=== PATIENT | female | born 1970 | race Caucasian/White ===

== ENCOUNTER 2016-12-23 21:08 | Emergency (ER) | payer MEDICAID, SELFPAY ==
[2016-12-23] MEDS ORDERED: Metoclopramide 10 MG/2 ML SDV IM ONE (21:32)
[2016-12-23] MEDS ORDERED: Ketorolac 60 MG/2 ML SDV IM ONE (21:32)
[2016-12-23] MEDS ORDERED: diphenhydrAMINE 50 MG/ML SDV IM ONE (21:32)
[2016-12-23 21:55] VITALS: BP 144/80
--- NOTE | 2016-12-25 03:26 | ER ---
DATE SEEN: 12/23/2016 REASON FOR VISIT: Headache. HISTORY OF PRESENT ILLNESS: Venancio is a 46-year-old female with a headache that started this morning when she woke up, bitemporal, [id number]. Has not improved with Aleve or Zofran, but characteristic of her usual migraine headaches. REVIEW OF SYSTEMS: Photophobia, but no fever. Denies any abdominal pain. Complains of right leg pain. ALLERGIES: Morphine. PAST MEDICAL HISTORY: Dehydration, migraine headaches, persistent emesis, cyclic vomiting, chronic low back pain, hypertension, mood disorder. PHYSICAL EXAMINATION: GENERAL: She is not in any cardiopulmonary distress. VITAL SIGNS: Her blood pressure today is 155/91, temperature 98.5. ENT: Negative. EYES: Dilated, equally reactive to light, symmetric. Normal extraocular movements. NECK: Supple. NEUROLOGIC: Deep tendons are symmetric. No focal findings. LABORATORY DATA: None. IMPRESSION: Migraine headache exacerbation. PLAN: Toradol, Reglan, and Benadryl IM. I advised her to drink fluids, rest, sleep, and if symptoms are not improved to see Dr. Boswell tomorrow. TIME SEEN: 2130 hours. /[id number] ETHAN/MICHAEL
== END 2016-12-23 21:53 | disposition home or self-care (01) ==
LOC: FB.ED 21:08
DX: G43.909 Migraine, unspecified, not intractable, without status migrainosus (principal); Z88.5 Allergy status to narcotic agent; I10 Essential (primary) hypertension
CPT/HCPCS: 96372; 99283; J1200; J1885; J2765

== ENCOUNTER 2017-06-14 06:49 | Day surgery (SDC) | payer MEDICAID ==
[~2017-06-14 06:49] MED LIST: Lactated Ringers 1,000 ML IV SCH; Sodium Chloride 0.9% 10 ML Syringe FLUSH PRN
[2017-06-14] MEDS ORDERED: Midazolam 1 MG/ML 2 ML SDV IV ONE (08:00)
[2017-06-14] MEDS ORDERED: Propofol 200 MG/20 ML SDV IV ONE (08:00)
--- NOTE | 2017-06-14 08:37 | PCM.OPNOTE ---
- General Post-Op/Procedure Note Date of Surgery/Procedure: 06/14/17 Operative Procedure(s): c scope with random biopsy Findings: normal colon Pre Op Diagnosis: diarrhea Post-Op Diagnosis: tho scope Anesthesia Technique: MAC Primary Surgeon: Victor Manuel Huang Anesthesia Provider: Geremias Holliday Pathology: random colon bx Complications: None Condition: Good Free Text/Narrative:: see dictation
[2017-06-14 10:20] VITALS: BP 132/74
--- NOTE | 2017-06-14 17:32 | OR ---
DATE OF OPERATION: 06/14/2017 SURGEON: Victor Manuel Huang MD PROCEDURE PERFORMED: Colonoscopy with random cold forceps biopsy. PREOPERATIVE DIAGNOSIS: History of diarrhea as well as Clostridium difficile infection in the past. POSTOPERATIVE DIAGNOSIS: Normal colonoscopy. INDICATIONS FOR PROCEDURE: This is a 46-year-old white female who is referred with a history of diarrhea as well as C. diff infection in the past. She has been treated multiple times for this condition and has continued to have loose stools. She was offered and accepted colonoscopy. PROCEDURE IN DETAIL: After an excellent IV sedation was administered, digital rectal exam was performed. No marked abnormality was noted. Flexible colonoscope was inserted and advanced to the cecum without difficulty. There were some areas of liquid stool, but we were able to irrigate and get a good view of the colon. The following findings were noted. Ascending colon unremarkable. Random biopsies were taken. Transverse colon, unremarkable. Random biopsies were taken. Descending colon, unremarkable. Random biopsies were taken. Sigmoid and rectum unremarkable. Random biopsies were taken. Colon was deflated, scope was removed. The patient tolerated the procedure well and was taken to recovery room in good condition. /[id number] /MODL
== END 2017-06-14 10:40 | disposition home or self-care (01) ==
LOC: FB.SDS 06:49
PROVIDERS: ATTEND Surgery
DX: K52.9 Noninfective gastroenteritis and colitis, unspecified (principal); J44.9 Chronic obstructive pulmonary disease, unspecified; K21.9 Gastro-esophageal reflux disease without esophagitis; E55.9 Vitamin D deficiency, unspecified; F32.9 Major depressive disorder, single episode, unspecified; F41.1 Generalized anxiety disorder; Z88.8 Allergy status to other drugs, medicaments and biological substances; Z79.899 Other long term (current) drug therapy; Z90.49 Acquired absence of other specified parts of digestive tract; Z98.890 Other specified postprocedural states; F17.210 Nicotine dependence, cigarettes, uncomplicated
CPT/HCPCS: 45380; 81025; 88305; J2250; J2704; J7120

== ENCOUNTER 2017-11-26 16:53 | Emergency (ER) | payer MEDICAID ==
[2017-11-26] MEDS ORDERED: Ondansetron 4 MG/2 ML SDV IVPUSH ONE (17:19)
[2017-11-26] MEDS ORDERED: diphenhydrAMINE 50 MG/ML SDV IVPUSH ONE (17:21)
[2017-11-26] MEDS ORDERED: Ketorolac 30 MG/ML SDV IVPUSH ONE (17:21)
--- NOTE | 2017-11-26 17:27 | EDM.PDOC ---
ED HPI GENERAL MEDICAL PROBLEM - General Chief Complaint: Abdominal Pain Stated Complaint: STOMACH ACHE Time Seen by Provider: 11/26/17 17:30 Source of Information: Reports: Patient History Limitations: Reports: No Limitations - History of Present Illness INITIAL COMMENTS - FREE TEXT/NARRATIVE: c/o R sided abd pain x 36h pt awoke at 3a with R flank pain that has persisted, not better or worse with position or eating not take regular meds in past wk h/o C diff twice, had bowel transplant, has intrathecal stimulator PMH includes RA and fibromyalgia no f/c/d, has had colonoscopy x 2 in past works at [employer], worked 7h today and left early, was off work yesterday nl soft BM x 1 today with no change in pain ate a burrito for bfast and hotdish for lunch today slight N, no V has HPV type 16 Abdominal Pain Score (Numeric/FACES): 8 - Related Data Allergies Allergy/AdvReac Type Severity Reaction Status Date / Time morphine Allergy Nausea and Verified 11/26/17 17:10 Vomiting Home Meds: Home Meds Ondansetron [Zofran] 8 g PO TID 12/23/16 [History] Albuterol [IMW: Albuterol HFA] 2 puff IH Q4H PRN 06/13/17 [History] LORazepam [Ativan] 0.5 mg PO TID PRN 06/13/17 [History] PARoxetine HCl [Paxil] 20 mg PO DAILY 06/13/17 [History] Potassium Chloride 10 meq PO DAILY 06/13/17 [History] Tocilizumab [Actemra] 0.9 ml SQ ASDIRECTED 06/13/17 [History] Potassium Chloride 20 meq PO BID #6 tablet.er 11/26/17 [Rx] Past Medical History - Past Health History Medical/Surgical History: Denies Medical/Surgical History HEENT History: Reports: None, Impaired Vision Cardiovascular History: Reports: Hypertension Other Cardiovascular History: HTN when sick, is on 0 meds. Respiratory History: Reports: Asthma, COPD, Pneumonia, Recurrent Gastrointestinal History: Reports: Chronic Diarrhea, Colon Polyp, GERD [employer] History: Reports: Other OB/BYN History: polycystic ovary. IV PARA IV Musculoskeletal History: Reports: Fracture, Fibromyalgia, Osteoarthritis, RA Other Musculoskeletal History: fx 3 metatarsals L ft, history of RA Neurological History: Reports: Concussion, Migraines Other Neuro History: states has migranes Psychiatric History: Reports: Anxiety, Depression Endocrine/Metabolic History: Reports: None Hematologic History: Reports: None Immunologic History: Reports: None Oncologic (Cancer) History: Reports: None Dermatologic History: Reports: None - Infectious Disease History Infectious Disease History: Reports: Chicken Pox, Herpes, Influenza, Mumps - Past Surgical History Head Surgeries/Procedures: Reports: None HEENT Surgical History: Reports: Oral Surgery Other HEENT Surgeries/Procedures: WISDOM TEETH EXTRACTION GI Surgical History: Reports: Cholecystectomy, Colonoscopy, EGD Other GI Surgeries/Procedures: c-diff,fecal transplant Other Female Surgeries/Procedures: DIAGNOSTIC LAPAROSCOPY Other Musculoskeletal Surgeries/Procedures:: fibromyalgia/ states , has rheumatoid arthritis, degenerative disc dse. FX LEFT FOOT. STATES WORE A BOOT FOR 6 MOS. Social & Family History - Family History Family Medical History: Noncontributory GI: Reports: None Musculoskeletal: Reports: RA Psychiatric: Reports: Depression Oncologic: Reports: Leukemia - Tobacco Use Smoking Status *Q: Current Every Day Smoker Years of Tobacco use: 25 Packs/Tins Daily: 0.5 Used Tobacco, but Quit: No Month/Year Tobacco Last Used: JUNE [employer] Smoke Exposure: Yes - Caffeine Use Caffeine Use: Reports: None - Alcohol Use Days Per Week of Alcohol Use: 2 Number of Drinks Per Day: 2 Total Drinks Per Week: 4 - Recreational Drug Use Recreational Drug Use: No Drug Use in Last 12 Months: No Recreational Drug Type: Reports: Marijuana/Hashish Recreational Drug Use Frequency: Socially - Living Situation & Occupation Living situation: Reports: Single Occupation: Employed ED ROS GENERAL - Review of Systems Review Of Systems: See Below Constitutional: Reports: No Symptoms HEENT: Reports: No Symptoms Respiratory: Reports: No Symptoms Cardiovascular: Reports: No Symptoms Endocrine: Reports: No Symptoms GI/Abdominal: Reports: Abdominal Pain, Nausea : Reports: No Symptoms Musculoskeletal: Reports: No Symptoms Skin: Reports: No Symptoms Neurological: Reports: No Symptoms Psychiatric: Reports: No Symptoms Hematologic/Lymphatic: Reports: No Symptoms Immunologic: Reports: No Symptoms ED EXAM, GI/ABD - Physical Exam Exam: See Below Exam Limited By: No Limitations General Appearance: Alert, WD/WN, Mild Distress Nose: Normal Inspection, Normal Mucosa, No Blood Throat/Mouth: Normal Inspection, Normal Lips, Normal Teeth, Normal Gums, Normal Voice, No Airway Compromise Head: Atraumatic, Normocephalic Neck: Normal Inspection, Supple, Non-Tender, Full Range of Motion Respiratory/Chest: No Respiratory Distress, Lungs Clear, Normal Breath Sounds, No Accessory Muscle Use, Chest Non-Tender Cardiovascular: Normal Peripheral Pulses, Regular Rate, Rhythm, No Edema, No Gallop, No JVD, No Murmur, No Rub GI/Abdominal Exam: Normal Bowel Sounds, Soft, No Organomegaly, No Distention, No Abnormal Bruit, No Mass, Other (slight tender over R colon). No: Distended, Guarding, Rigid, Rebound Back Exam: Normal Inspection, Full Range of Motion, NT Extremities: Normal Inspection, Normal Range of Motion, Non-Tender, No Pedal Edema Neurological: Alert, Oriented, CN II-XII Intact, No Motor/Sensory Deficits Psychiatric: Normal Affect, Normal Mood Skin Exam: Warm, Dry, Intact, Normal Color, No Rash Course - Vital Signs Last Recorded V/S: Last Vital Signs Temp 36.9 C 11/26/17 18:45 Pulse 68 11/26/17 18:45 Resp 16 11/26/17 18:45 BP 130/76 11/26/17 18:45 Pulse Ox 98 11/26/17 18:45 - Orders/Labs/Meds Orders: Active Orders 24 hr Category Date Time Status UA W/MICROSCOPIC [URIN] Stat Lab 11/26/17 17:18 Ordered Sodium Chloride 0.9% [Normal Saline] 1,000 ml Med 11/26/17 17:30 Active IV ASDIRECTED Sodium Chloride 0.9% [Normal Saline] 1,000 ml Med 11/26/17 17:30 Active IV ASDIRECTED Medication Orders Sodium Chloride (Normal Saline) 1,000 mls @ 999 mls/hr IV ASDIRECTED HARMONY Last Admin: 11/26/17 18:00 Dose: 999 mls/hr Sodium Chloride (Normal Saline) 1,000 mls @ 999 mls/hr IV ASDIRECTED HARMONY Last Admin: 11/26/17 19:02 Dose: 999 mls/hr Labs: Laboratory Tests 11/26/17 11/26/17 11/26/17 Range/Units 17:45 17:45 17:45 WBC 7.4 (4.5-12.0) X10-3/uL RBC 4.37 (3.23-5.20) x10(6)uL Hgb 13.8 D (11.5-15.5) g/dL Hct 40.1 D (30.0-51.3) % MCV 91.8 (80-96) fL MCH 31.5 (27.7-33.6) pg MCHC 34.3 (32.2-35.4) g/dL RDW 12.8 (11.5-15.5) % Plt Count 174 (125-369) X10(3)uL MPV 9.6 (7.4-10.4) fL Neut % (Auto) 53.4 (46-82) % Lymph % (Auto) 33.7 (13-37) % Cassia % (Auto) 8.4 (4-12) % Eos % (Auto) 4 (1.0-5.0) % Baso % (Auto) 1 (0-2) % Neut # (Auto) 3.9 (1.6-8.3) # Lymph # (Auto) 2.5 (0.6-5.0) # Cassia # (Auto) 0.6 (0.0-1.3) # Eos # (Auto) 0.3 (0.0-0.8) # Baso # (Auto) 0.1 (0.0-0.2) # Sodium 142 (135-145) mmol/L Potassium 3.2 L (3.5-5.3) mmol/L Chloride 106 (100-110) mmol/L Carbon Dioxide 23 (21-32) mmol/L BUN 17 (7-18) mg/dL Creatinine 0.7 (0.55-1.02) mg/dL Est Cr Clr Drug Dosing 91.32 mL/min Estimated GFR (MDRD) > 60 (>60) BUN/Creatinine Ratio 24.3 H (9-20) Glucose 116 (80-116) mg/dL Calcium 8.5 L (8.6-10.2) mg/dL Magnesium (1.8-2.5) mg/dL Total Bilirubin 0.3 (0.1-1.3) mg/dL AST 19 (5-25) IU/L ALT 26 (12-36) U/L Alkaline Phosphatase 81 (56-112) IU/L C-Reactive Protein < 0.2 L (0.5-0.9) mg/dL Total Protein 6.6 (6.0-8.0) g/dL Albumin 3.5 (3.5-5.2) g/dL Globulin 3.1 g/dL Albumin/Globulin Ratio 1.1 Amylase 38 (25-115) U/L // Range/Units 17:45 WBC (4.5-12.0) X10-3/uL RBC (3.23-5.20) x10(6)uL Hgb (11.5-15.5) g/dL Hct (30.0-51.3) % MCV (80-96) fL MCH (27.7-33.6) pg MCHC (32.2-35.4) g/dL RDW (11.5-15.5) % Plt Count (125-369) X10(3)uL MPV (7.4-10.4) fL Neut % (Auto) (46-82) % Lymph % (Auto) (13-37) % Cassia % (Auto) (4-12) % Eos % (Auto) (1.0-5.0) % Baso % (Auto) (0-2) % Neut # (Auto) (1.6-8.3) # Lymph # (Auto) (0.6-5.0) # Cassia # (Auto) (0.0-1.3) # Eos # (Auto) (0.0-0.8) # Baso # (Auto) (0.0-0.2) # Sodium (135-145) mmol/L Potassium (3.5-5.3) mmol/L Chloride (100-110) mmol/L Carbon Dioxide (21-32) mmol/L BUN (7-18) mg/dL Creatinine (0.55-1.02) mg/dL Est Cr Clr Drug Dosing mL/min Estimated GFR (MDRD) (>60) BUN/Creatinine Ratio (9-20) Glucose (80-116) mg/dL Calcium (8.6-10.2) mg/dL Magnesium 1.9 (1.8-2.5) mg/dL Total Bilirubin (0.1-1.3) mg/dL AST (5-25) IU/L ALT (12-36) U/L Alkaline Phosphatase (56-112) IU/L C-Reactive Protein (0.5-0.9) mg/dL Total Protein (6.0-8.0) g/dL Albumin (3.5-5.2) g/dL Globulin g/dL Albumin/Globulin Ratio Amylase (25-115) U/L Meds: Medications Generic Name Dose Route Start Last Admin Trade Name Freq PRN Reason Stop Dose Admin Sodium Chloride 1,000 mls @ 999 mls/hr 11/26/17 17:30 11/26/17 18:00 Normal Saline IV 999 mls/hr ASDIRECTED HARMONY Administration Sodium Chloride 1,000 mls @ 999 mls/hr 11/26/17 17:30 11/26/17 19:02 Normal Saline IV 999 mls/hr ASDIRECTED HARMONY Administration Discontinued Medications Generic Name Dose Route Start Last Admin Trade Name Freq PRN Reason Stop Dose Admin Diphenhydramine HCl 50 mg 11/26/17 17:21 11/26/17 18:02 Benadryl IVPUSH 11/26/17 17:22 50 mg ONETIME ONE Administration Ketorolac Tromethamine 30 mg 11/26/17 17:21 11/26/17 18:03 Toradol IVPUSH 11/26/17 17:22 30 mg ONETIME ONE Administration Ondansetron HCl 4 mg 11/26/17 17:19 11/26/17 18:00 Zofran IVPUSH 11/26/17 17:20 4 mg ONETIME ONE Administration Potassium Chloride 40 meq 11/26/17 19:02 Klor-Con M20 PO 11/26/17 19:03 ONETIME ONE - Re-Assessments/Exams Free Text/Narrative Re-Assessment/Exam: 11/26/17 19:18 pt fell asleep after meds and fluids, labs neg except for evidence of dehydration, no infection Departure - Departure Time of Disposition: 19:19 Disposition: Home, Self-Care 01 Condition: Good Clinical Impression: Dehydration, Hypokalemia, Colon spasm - Discharge Information Prescriptions: Potassium Chloride 20 meq PO BID #6 tablet.er Instructions: Hypokalemia, Dehydration, Adult, Irritable Bowel Syndrome, Adult Referrals: Leonel Boswell MD [Primary Care Provider] - Forms: ED Department Discharge Additional Instructions: For pain and cramping, take ibuprofen 200 mg 3 tabs and acetaminophen 500 mg with meals and bedtime for next 2 days. Increase fluids. Rest. See your doctor in 2 days. - My Orders Last 24 Hours: My Active Orders 11/26/17 17:18 UA W/MICROSCOPIC [URIN] Stat 11/26/17 17:30 Sodium Chloride 0.9% [Normal Saline] 1,000 ml IV ASDIRECTED Sodium Chloride 0.9% [Normal Saline] 1,000 ml IV ASDIRECTED - Assessment/Plan Last 24 Hours: My Active Orders 11/26/17 17:18 UA W/MICROSCOPIC [URIN] Stat 11/26/17 17:30 Sodium Chloride 0.9% [Normal Saline] 1,000 ml IV ASDIRECTED Sodium Chloride 0.9% [Normal Saline] 1,000 ml IV ASDIRECTED
[2017-11-26] MEDS ORDERED: Sodium Chloride 0.9% 1,000 ML IV SCH ×2 (17:30)
[2017-11-26] MEDS ORDERED: Potassium Chloride 20 MEQ Tab.ER PO ONE (19:02)
[2017-11-27 03:01] VITALS: BP 121/66
== END 2017-11-26 20:25 | disposition home or self-care (01) ==
LOC: FB.ED 16:53
DX: K58.9 Irritable bowel syndrome, unspecified (principal); E87.6 Hypokalemia; E86.0 Dehydration; I10 Essential (primary) hypertension; J44.9 Chronic obstructive pulmonary disease, unspecified; Z87.01 Personal history of pneumonia (recurrent); F32.9 Major depressive disorder, single episode, unspecified; F41.9 Anxiety disorder, unspecified; F17.210 Nicotine dependence, cigarettes, uncomplicated; Z88.5 Allergy status to narcotic agent; Z79.899 Other long term (current) drug therapy
CPT/HCPCS: 36415; 80053; 82150; 83735; 85025; 86140; 96361; 96374; 96375; 99283; A9270; J1200; J1885; J2405; J7040; J7030

== ENCOUNTER 2019-01-31 07:25 | Day surgery (SDC) | payer MEDICAID ==
[2019-01-31] MEDS ORDERED: Midazolam 1 MG/ML 2 ML SDV IV ONE (07:26)
[2019-01-31] MEDS ORDERED: Lidocaine 2% 100 MG/5 ML Syringe IVPUSH ONE (07:26)
[2019-01-31] MEDS ORDERED: Propofol 200 MG/20 ML SDV IV ONE (07:26)
[2019-01-31] MEDS ORDERED: Lactated Ringers 1,000 ML IV SCH (07:30)
[2019-01-31] MEDS ORDERED: Sodium Chloride 0.9% 10 ML Syringe FLUSH PRN (07:30)
--- NOTE | 2019-01-31 09:30 | PCM.OPNOTE ---
- General Post-Op/Procedure Note Date of Surgery/Procedure: 01/31/19 Operative Procedure(s): egd with bx. c scope with bx Findings: gastritis esophagitis sigmoid polyps hyperplastic internal hemorrhoids Pre Op Diagnosis: ruq abd pain. hematochezia Post-Op Diagnosis: gastritis esophagitis. sigmoid polyps, internal hemorrhoids Anesthesia Technique: MAC Primary Surgeon: Victor Manuel Huang Anesthesia Provider: Roseline Victor (CRNAS Myhre) Pathology: stomach esophagus and colon Complications: None Condition: Good Free Text/Narrative:: see dictation
[2019-01-31 10:19] VITALS: BP 123/96
--- NOTE | 2019-01-31 13:49 | OR ---
DATE OF OPERATION: 01/31/2019 SURGEON: Victor Manuel Huang MD PROCEDURE PERFORMED: Colonoscopy and upper endoscopy. PREOPERATIVE DIAGNOSES: Right upper quadrant abdominal pain and hematochezia. POSTOPERATIVE DIAGNOSES: Gastritis, esophagitis, sigmoid polyps x2, and internal hemorrhoids. INDICATIONS FOR PROCEDURE: This is a 48-year-old white female who was referred with the above-mentioned complaints. She was offered and accepted both an upper and lower endoscopy. DESCRIPTION OF OPERATION: After an excellent IV sedation was administered, the bite block was inserted and the flexible endoscope was passed down the patient's esophagus into the stomach. The stomach was insufflated, scope passed through the pylorus to the second portion of the duodenum and slowly withdrawn. The following findings were noted. Stomach demonstrated some diffuse gastritis. Biopsies and photos were taken. GE junction measured at 40 cm. There was evidence of some mild esophagitis just above this. Random biopsies were taken. The remainder of the esophageal exam was unremarkable. Stomach was deflated and the scope was removed. Attention was then turned to the colon. Digital rectal exam was performed. No abnormalities were noted. Flexible colonoscope was inserted and advanced to the cecum. Prep was excellent. The following findings were noted. Ascending colon was unremarkable. Transverse colon was unremarkable. Descending colon was unremarkable. Sigmoid revealed what appeared to be two hyperplastic appearing polyps. These were biopsied and sent for permanent. Rectum unremarkable. Retroflexing the scope, there was some evidence of internal hemorrhoids, which appears to be the cause of her bleeding. The patient tolerated the procedure well. We will have her follow up in the clinic for an anoscopy with possible hemorrhoid banding. /[id number] /MODL
== END 2019-01-31 10:53 | disposition home or self-care (01) ==
LOC: FB.SDS 07:25
PROVIDERS: ATTEND Surgery
DX: K63.5 Polyp of colon (principal); K20.9 Esophagitis, unspecified; K29.50 Unspecified chronic gastritis without bleeding; K64.8 Other hemorrhoids; M06.832 Other specified rheumatoid arthritis, left wrist; G43.709 Chronic migraine without aura, not intractable, without status migrainosus; F41.1 Generalized anxiety disorder; F32.9 Major depressive disorder, single episode, unspecified; M54.16 Radiculopathy, lumbar region; G89.29 Other chronic pain; J44.9 Chronic obstructive pulmonary disease, unspecified; F17.210 Nicotine dependence, cigarettes, uncomplicated; Z87.19 Personal history of other diseases of the digestive system; Z86.79 Personal history of other diseases of the circulatory system; Z79.891 Long term (current) use of opiate analgesic; Z79.899 Other long term (current) drug therapy; Z88.5 Allergy status to narcotic agent
CPT/HCPCS: 43239; 45380; 81025; 88305; 88313; 88342; J2001; J2250; J2704; J7120

== ENCOUNTER 2019-05-01 13:15 | Emergency (ER) | payer MEDICAID ==
[2019-05-01 13:45] VITALS: BP 151/89; PULSE 93
[2019-05-01] MEDS ORDERED: Albuterol/Ipratropium 3.0-0.5 MG/3 ML Neb Soln NEB ONE (14:01)
--- NOTE | 2019-05-01 14:21 | EDM.PDOC ---
ED HPI GENERAL MEDICAL PROBLEM - General Chief Complaint: Respiratory Problem Stated Complaint: CHEST COLD, SINUS Time Seen by Provider: 05/01/19 14:00 Source of Information: Reports: Patient History Limitations: Reports: No Limitations - History of Present Illness INITIAL COMMENTS - FREE TEXT/NARRATIVE: patient is a pleasant 48-year-old female who presents today with feeling lightheaded, slight nausea and a lot of coughing. She reports that her chest hurts and that she her symptoms have been ongoing for the past week. Sometimes it feels very hard to breathe and she has a lot of phlegm in her throat. She notes a headache today, and this seemed to start last night, especially around her eyes which are slightly crusted this morning. Chills and sweats but uncertain about fever. She was seen over in clinic yesterday by Dr. Rosario and started on Augmentin for acute sinusitis. She reports she took her first dose this morning. She had gone up to [facility] in [place] today and started feeling lightheaded, some just had her friend bring her here. She has been using her rescue inhaler approximately 45 times a day and she is prescribed Symbicort but has not been using this. she has tried cough drops and NyQuil at home but these don't seem to be helping. No history of coronary artery disease or diabetes, occasional social alcohol and for THC. Smokes tobacco regularly. No family history of early heart disease - Related Data Allergies Allergy/AdvReac Type Severity Reaction Status Date / Time morphine Allergy Nausea and Verified 01/31/19 07:41 Vomiting Home Meds: Home Meds Albuterol [IMW: Albuterol HFA] 2 puff IH Q4H PRN 06/13/17 [History] LORazepam [Ativan] 0.5 mg PO BID PRN 06/13/17 [History] Tocilizumab [Actemra] 0.9 ml SQ ASDIRECTED 06/13/17 [History] Diclofenac Sodium [Voltaren] 75 mg PO BID 01/30/19 [History] Nitroglycerin [Nitro-Bid 2%] 1 applic TOP ASDIRECTED PRN 01/30/19 [History] Ondansetron HCl [Zofran] 4 mg PO TID PRN 01/30/19 [History] SUMAtriptan Succinate [Imitrex] 100 mg PO Q2H PRN 01/30/19 [History] predniSONE [Prednisone] 40 mg PO QAM 5 Days #10 tablet 05/01/19 [Rx] Past Medical History HEENT History: Reports: None, Impaired Vision Cardiovascular History: Reports: Hypertension Other Cardiovascular History: HTN when sick, is on 0 meds. 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 IV PARA IV Musculoskeletal History: Reports: Arthritis, Back Pain, Chronic, Fracture, Fibromyalgia, Osteoarthritis, RA Other Musculoskeletal History: fx 3 metatarsals L ft, history of RA Neurological History: Reports: Concussion, Migraines Other Neuro History: states has migranes Psychiatric History: Reports: Anxiety, Depression Endocrine/Metabolic History: Reports: None Other Endocrine/Metabolic History: hyponatremia Hematologic History: Reports: None Immunologic History: Reports: None Oncologic (Cancer) History: Reports: None Dermatologic History: Reports: None - Infectious Disease History Infectious Disease History: Reports: C-Difficile - Past Surgical History Head Surgeries/Procedures: Reports: None HEENT Surgical History: Reports: Oral Surgery Other HEENT Surgeries/Procedures: WISDOM TEETH EXTRACTION GI Surgical History: Reports: Cholecystectomy, Colonoscopy, EGD Other GI Surgeries/Procedures: c-diff,fecal transplant Other Female Surgeries/Procedures: DIAGNOSTIC LAPAROSCOPY Other Musculoskeletal Surgeries/Procedures:: fibromyalgia/ states , has rheumatoid arthritis, degenerative disc dse. FX LEFT FOOT. STATES WORE A BOOT FOR 6 MOS. Social & Family History - Family History Family Medical History: Noncontributory GI: Reports: None Musculoskeletal: Reports: RA Psychiatric: Reports: Depression Oncologic: Reports: Leukemia - Tobacco Use Smoking Status *Q: Current Every Day Smoker - Caffeine Use Caffeine Use: Reports: Coffee, Soda - Alcohol Use Alcohol Use History: Yes Date/Time of Last Drink Comment: social - Living Situation & Occupation Living situation: Reports: Single Occupation: Employed ED ROS GENERAL - Review of Systems Review Of Systems: ROS reveals no pertinent complaints other than HPI. ED EXAM, GENERAL - Physical Exam Exam: See Below Free Text/Narrative:: Gen.: Alert, tired appearing but no acute distress. Tympanic membranes are clear bilaterally with normal light reflex and throat is without erythema, some drainage is noted at the back. Not really any sinus tenderness. She has shotty cervical lymphadenopathy. The neck is supple. Heart is regular rate and rhythm. Lungs are clear with decreased air movement and very slight expiratory wheeze. Following nebulizer treatment she has increased air movement overall, still no wheezes or crackles. Peripheral pulses +2 in both the upper and lower extremities and there is no lower extremity edema. Abdomen soft nontender EKG INTERPRETATION Rhythm: NSR P-Wave: Present QRS: Normal ST-T: Normal QT: Normal Course - Vital Signs Text/Narrative:: initial impressionpossible asthma exacerbation, less likely pneumonia, significant comorbidity with smoking and immunosuppression. Doesn't seem to be cardiac in origin but we will check troponin and get EKG as well given her risk factors of smoking and high blood pressure. plan: Labs, EKG, chest x-ray, nebulizer treatment here Last Recorded V/S: Last Vital Signs Temp 36.9 C 05/01/19 13:25 Pulse 93 05/01/19 13:25 Resp 18 05/01/19 13:25 BP 151/89 H 05/01/19 13:25 Pulse Ox 100 05/01/19 13:25 - Orders/Labs/Meds Orders: Active Orders 24 hr Category Date Time Status EKG Documentation Completion [RC] ASDIRECTED Care 05/01/19 14:02 Active RT Aerosol Therapy [RC] ASDIRECTED Care 05/01/19 14:01 Active Chest 2V [CR] Stat Exams 05/01/19 14:01 Taken EKG 12 Lead [EK] Routine Ther 05/01/19 14:02 Ordered Labs: Laboratory Tests 05/01/19 05/01/19 Range/Units 14:15 14:15 WBC 9.7 (4.5-12.0) X10-3/uL RBC 4.48 (3.23-5.20) x10(6)uL Hgb 14.2 (11.5-15.5) g/dL Hct 42.3 (30.0-51.3) % MCV 94.6 (80-96) fL MCH 31.8 (27.7-33.6) pg MCHC 33.7 (32.2-35.4) g/dL RDW 12.8 (11.5-15.5) % Plt Count 204 (125-369) X10(3)uL MPV 9.3 (7.4-10.4) fL Add Manual Diff Yes Neutrophils % (Manual) 72 (46-82) % Lymphocytes % (Manual) 25 (13-37) % Monocytes % (Manual) 3 L (4-12) % Troponin I < 0.017 L (<0.017-0.056) ng/mL Meds: Medications Discontinued Medications Generic Name Dose Route Start Last Admin Trade Name Freq PRN Reason Stop Dose Admin Albuterol/Ipratropium 3 ml 05/01/19 14:01 05/01/19 14:45 Duoneb 3.0-0.5 Mg/3 Ml NEB 05/01/19 14:02 3 ml ONETIME ONE Administration - Re-Assessments/Exams Free Text/Narrative Re-Assessment/Exam: 05/01/19 15:00 labs reviewed and are completely within normal limits. Patient chest exam shows improved air movement following DuoNeb and she states that her breathing feels much easier. Discussed doing a prednisone burst to help with her respiratory symptoms, particularly given her cough at night. Continue Augmentin as prescribed for acute sinusitis. Note provided for work for [employer] and tomorrow. Discussed sweats or symptoms which would prompt return to care and all questions were answered, she is in agreement with this plan Departure - Departure Time of Disposition: 15:28 Disposition: Home, Self-Care 01 Condition: Good Clinical Impression: Asthma exacerbation, COPD (chronic obstructive pulmonary disease) Sinusitis Qualifiers: Sinusitis location: pansinusitis Chronicity: acute Recurrence: non-recurrent Qualified Code(s): J01.40 - Acute pansinusitis, unspecified - Discharge Information *PRESCRIPTION DRUG MONITORING PROGRAM REVIEWED*: Not Applicable *COPY OF PRESCRIPTION DRUG MONITORING REPORT IN PATIENT MELISSA: Not Applicable Prescriptions: predniSONE [Prednisone] 40 mg PO QAM 5 Days #10 tablet Instructions: Sinusitis, Adult, [id number], Asthma, Adult Referrals: Leonel Boswell MD [Primary Care Provider] - Forms: ED Department Discharge, ED Return to Work/School Form Additional Instructions: single most help for thing that you can do for your breathing, cough and ongoing sinus symptoms would be to quit smoking. Dr. Rosario may have some suggestions or medications or local program to help with thisit is very hard to do. Also recommend use of Symbicort twice daily as you have been previously prescribed. Can use regular rescue inhaler as well, especially why her sick but her need for it should decrease his urine prednisone. You can use 4-6 puffs at a dosethis is closer to the DuoNeb we gave her here. Continue the Augmentin as prescribed If worsening symptoms, particularly any fever, ongoing or worsening shortness of breath, or cough that doesn't resolve should be reevaluated by a physician. - My Orders Last 24 Hours: My Active Orders 05/01/19 14:01 RT Aerosol Therapy [RC] ASDIRECTED Chest 2V [CR] Stat 05/01/19 14:02 EKG Documentation Completion [RC] ASDIRECTED EKG 12 Lead [EK] Routine - Assessment/Plan Last 24 Hours: My Active Orders 05/01/19 14:01 RT Aerosol Therapy [RC] ASDIRECTED Chest 2V [CR] Stat 05/01/19 14:02 EKG Documentation Completion [RC] ASDIRECTED EKG 12 Lead [EK] Routine
--- NOTE | 2019-05-02 09:34 | CR ---
INDICATION: Shortness of breath. CHEST: PA and lateral views of the chest, 05/01/19, were compared with and 10/15/15, again revealing the heart, mediastinum, and bony thorax to be unremarkable, except to note spinal leads in place, unchanged from previous studies. An active infiltrate or effusion was not identified. There is mild prominence of the AP diameter and minimally flattened diaphragm leaves with slight digitalization of the right hemidiaphragm, which may be associated with COPD and should be correlated clinically. IMPRESSION: 1. No definite acute process. 2. Question a mild degree of obstructive airway disease - possible COPD. MTDD
== END 2019-05-01 15:58 | disposition home or self-care (01) ==
LOC: FB.ED 13:15
DX: J44.1 Chronic obstructive pulmonary disease with (acute) exacerbation (principal); J01.40 Acute pansinusitis, unspecified; I10 Essential (primary) hypertension; F41.9 Anxiety disorder, unspecified; F32.9 Major depressive disorder, single episode, unspecified; F17.200 Nicotine dependence, unspecified, uncomplicated; Z88.5 Allergy status to narcotic agent; Z79.899 Other long term (current) drug therapy
CPT/HCPCS: 36415; 71046; 84484; 85025; 93005; 93010; 99282; 99284-25; J7620-GY

== ENCOUNTER 2020-05-24 09:31 | Emergency (ER) | payer MEDICAID, OTHER ==
[2020-05-24 09:41] VITALS: BP 149/99; PULSE 95
[2020-05-24] MEDS ORDERED: Ketorolac 60 MG/2 ML SDV IM ONE (10:03)
[2020-05-24] MEDS ORDERED: Amoxicillin 500 MG Cap PO ONE (10:06)
[2020-05-24] MEDS ORDERED: Lidocaine 2% Viscous Solution 15 ML Cup PO ONE (10:07)
--- NOTE | 2020-05-24 10:15 | EDM.PDOC ---
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 [employer], scheduled to work at 3p today sent to [facility] 11m ago in [place], told to have 3 teeth pulled but did not have $1000 to do so, has pain in those teeth now has Medicaid has h/o C diff and is cautious re using antbxs, will limit amox to 5d if pain gone has been taking Aleve dental pain Pain Score (Numeric/FACES): 9 - Related Data Allergies Allergy/AdvReac Type Severity Reaction Status Date / Time morphine Allergy Nausea and Verified 05/24/20 09:40 Vomiting Home Meds: Home Meds Albuterol [IMW: Albuterol HFA] 2 puff IH Q4H PRN 06/13/17 [History] LORazepam [Ativan] 0.5 mg PO BID PRN 06/13/17 [History] Tocilizumab [Actemra] 0.9 ml SQ ASDIRECTED 06/13/17 [History] Diclofenac Sodium [Voltaren] 75 mg PO BID 01/30/19 [History] Nitroglycerin [Nitro-Bid 2%] 1 applic TOP ASDIRECTED PRN 01/30/19 [History] SUMAtriptan succinate [Imitrex] 100 mg PO Q2H PRN 01/30/19 [History] ondansetron HCL [Zofran] 4 mg PO TID PRN 01/30/19 [History] predniSONE [Prednisone] 40 mg PO QAM 5 Days #10 tablet 05/01/19 [Rx] Amoxicillin 500 mg PO TID #20 tablet 05/24/20 [Rx] Lidocaine 2% [Xylocaine 2% Viscous] 15 ml PO ASDIRECTED PRN #1 cup 05/24/20 [Rx] Past Medical History - Past Health History Medical/Surgical History: Denies Medical/Surgical History HEENT History: Reports: None, Impaired Vision Cardiovascular History: Reports: Hypertension Other Cardiovascular History: HTN when sick, is not on any medication. 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 IV PARA IV Musculoskeletal History: Reports: Arthritis, Back Pain, Chronic, Fracture, Fibromyalgia, Osteoarthritis, RA Other Musculoskeletal History: fx 3 metatarsals L ft, history of RA Neurological History: Reports: Concussion, Migraines Other Neuro History: states has migranes Psychiatric History: Reports: Anxiety, Depression Endocrine/Metabolic History: Reports: None Other Endocrine/Metabolic History: hyponatremia Hematologic History: Reports: None Immunologic History: Reports: None Oncologic (Cancer) History: Reports: None Dermatologic History: Reports: None - Infectious Disease History Infectious Disease History: Reports: C-Difficile - Past Surgical History Head Surgeries/Procedures: Reports: None HEENT Surgical History: Reports: Oral Surgery Other HEENT Surgeries/Procedures: WISDOM TEETH EXTRACTION GI Surgical History: Reports: Cholecystectomy, Colonoscopy, EGD Other GI Surgeries/Procedures: c-diff,fecal transplant Other Female Surgeries/Procedures: DIAGNOSTIC LAPAROSCOPY Other Musculoskeletal Surgeries/Procedures:: fibromyalgia/ states , has rheumatoid arthritis, degenerative disc dse. FX LEFT FOOT. STATES WORE A BOOT FOR 6 MOS. Social & Family History - Family History Family Medical History: Noncontributory GI: Reports: None Musculoskeletal: Reports: RA Psychiatric: Reports: Depression Oncologic: Reports: Leukemia - Tobacco Use Smoking Status *Q: Current Every Day Smoker Years of Tobacco use: 30 Packs/Tins Daily: 0.5 - Caffeine Use Caffeine Use: Reports: Coffee, Energy Drinks, Soda - Recreational Drug Use Recreational Drug Use: Yes Recreational Drug Type: Reports: Marijuana/Hashish - Living Situation & Occupation Living situation: Reports: Single Occupation: Employed ED ROS ENT - Review of Systems Review Of Systems: See Below Constitutional: Reports: No Symptoms HEENT: Reports: Dental Pain Respiratory: Reports: No Symptoms Endocrine: Reports: No Symptoms GI/Abdominal: Reports: No Symptoms : Reports: No Symptoms Musculoskeletal: Reports: No Symptoms Skin: Reports: No Symptoms Neurological: Reports: No Symptoms Psychiatric: Reports: No Symptoms Hematologic/Lymphatic: Reports: No Symptoms Immunologic: Reports: No Symptoms ED EXAM, ENT - Physical Exam Exam: See Below Exam Limited By: No Limitations General Appearance: Alert, WD/WN, Mild Distress, Other (appears uncomfortable) Ears: Hearing Grossly Normal Nose: Normal Inspection, Normal Mucousa, No Blood Mouth/Throat: Other (tooth #32 absent, #31 loose (for past yr per pt) with erosion at base, #30 has large caries medially, #29 with little pain, #30-31 are the most tender and mainly on medial aspect, gingiva no red or swollen or tender, mild swell of 4 x 4 x 0.5 cm of skin over R mandible, no cervical LNs) Head: Atraumatic, Normocephalic Neck: No: Lymphadenopathy (R), Lymphadenopathy (L) Respiratory/Chest: No Respiratory Distress Cardiovascular: Regular Rate, Rhythm Course - Vital Signs Last Recorded V/S: Last Vital Signs Temp 36.2 C 05/24/20 09:40 Pulse 95 05/24/20 09:40 Resp 16 05/24/20 09:40 BP 149/99 H 05/24/20 09:40 Pulse Ox 98 05/24/20 09:40 - Orders/Labs/Meds Meds: Medications Discontinued Medications Generic Name Dose Route Start Last Admin Trade Name Freq PRN Reason Stop Dose Admin Amoxicillin 500 mg 05/24/20 10:06 Amoxil PO 05/24/20 10:07 ONETIME ONE Ketorolac Tromethamine 60 mg 05/24/20 10:03 Toradol IM 05/24/20 10:04 ONETIME ONE Lidocaine HCl 15 ml 05/24/20 10:07 Xylocaine 2% Viscous PO 05/24/20 10:08 ONETIME ONE Departure - Departure Time of Disposition: 10:10 Disposition: Home, Self-Care 01 Condition: Good Clinical Impression: Dental abscess, Dental caries - Discharge Information *COPY OF PRESCRIPTION DRUG MONITORING REPORT IN PATIENT MELISSA: Not Applicable Prescriptions: Amoxicillin 500 mg PO TID #20 tablet Lidocaine 2% [Xylocaine 2% Viscous] 15 ml PO ASDIRECTED PRN #1 cup PRN Reason: Pain Instructions: Dental Abscess Referrals: Boston Pedroza MD [Primary Care Provider] - Forms: ED Department Discharge, ED Return to Work/School Form Additional Instructions: For pain, take Aleve 2 tabs in morning, 1 tab in middle of day, and 2 tabs in evening. For pain, take acetaminophen 500 mg 2 tabs 3 times a day (at the same time as the Aleve). For pain, put a thin layer of 2% viscous lidocaine on a cotton ball and bite down every hour as needed. For pain, use ice on the mandible for 10 minute every hour. For pain, drink cold liquids and eat cold, soft food such as yogurt and jello. For infection, take amoxicillin 500 mg 1 tab 3 times a day for 7 days. May stop after 5 days if you are doing well. No work today unless you are feeling better. See a dentist in the next week. Return to ED (or walk-in clinic) if you are feeling worse. Sepsis Event Note (ED) - Evaluation Sepsis Screening Result: No Definite Risk - Focused Exam Vital Signs: Vital Signs Temp Pulse Resp BP Pulse Ox 05/24/20 09:40 36.2 C 95 16 149/99 H 98
== END 2020-05-24 10:32 | disposition home or self-care (01) ==
LOC: FB.ED 09:31
DX: K04.7 Periapical abscess without sinus (principal); K02.9 Dental caries, unspecified; I10 Essential (primary) hypertension; J44.9 Chronic obstructive pulmonary disease, unspecified; F41.9 Anxiety disorder, unspecified; F32.9 Major depressive disorder, single episode, unspecified; F17.210 Nicotine dependence, cigarettes, uncomplicated; Z88.5 Allergy status to narcotic agent; Z79.899 Other long term (current) drug therapy
CPT/HCPCS: 96372; 99282; A9270; J1885; 99283

== ENCOUNTER 2021-02-27 21:01 | Emergency (ER) | payer MEDICAID ==
--- NOTE | 2021-02-27 21:52 | EDM.PDOC ---
ED HPI GENERAL MEDICAL PROBLEM - General Chief Complaint: Chest Pain Stated Complaint: panic attack Time Seen by Provider: 02/27/21 21:15 Source of Information: Reports: Patient History Limitations: Reports: No Limitations - History of Present Illness INITIAL COMMENTS - FREE TEXT/NARRATIVE: Patient presented to the ED because of chest pain which started at 1900. the pain is sharp,5/10, over the sternal area. She also c/o nausea but no vomiting. She has a history of migraine and had headache all day. She took imitrex without any relief. Midsternal chest Pain Score (Numeric/FACES): 5 - Related Data Allergies Allergy/AdvReac Type Severity Reaction Status Date / Time morphine Allergy Nausea and Verified 02/27/21 21:27 Vomiting Home Meds: Home Meds Albuterol [IMW: Albuterol HFA] 2 puff IH Q4H PRN 06/13/17 [History] LORazepam [Ativan] 0.5 mg PO BID PRN 06/13/17 [History] Tocilizumab [Actemra] 0.9 ml SQ ASDIRECTED 06/13/17 [History] Diclofenac Sodium [Voltaren] 75 mg PO BID PRN 01/30/19 [History] SUMAtriptan succinate [Imitrex] 100 mg PO Q2H PRN 01/30/19 [History] ondansetron HCL [Zofran] 4 mg PO TID PRN 01/30/19 [History] Cyclobenzaprine [Flexeril] 10 mg PO DAILY PRN 02/27/21 [History] FLUoxetine HCl [Prozac] 20 mg PO DAILY 02/27/21 [History] Past Medical History - Past Health History Medical/Surgical History: Denies Medical/Surgical History HEENT History: Reports: None, Impaired Vision Cardiovascular History: Reports: Hypertension Other Cardiovascular History: HTN when sick, is not on any medication. 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 IV PARA IV Musculoskeletal History: Reports: Arthritis, Back Pain, Chronic, Fracture, Fibromyalgia, Osteoarthritis, RA Other Musculoskeletal History: fx 3 metatarsals L ft, history of RA Neurological History: Reports: Concussion, Migraines Other Neuro History: states has migranes Psychiatric History: Reports: Addiction, Anxiety, Depression Other Psychiatric History: hx meth abuse, clean for past 3 yrs Endocrine/Metabolic History: Reports: None Other Endocrine/Metabolic History: hyponatremia Hematologic History: Reports: None Immunologic History: Reports: None Oncologic (Cancer) History: Reports: None Dermatologic History: Reports: None - Infectious Disease History Infectious Disease History: Reports: C-Difficile, Chicken Pox - Past Surgical History Head Surgeries/Procedures: Reports: None HEENT Surgical History: Reports: Oral Surgery Other HEENT Surgeries/Procedures: WISDOM TEETH EXTRACTION Cardiovascular Surgical History: Reports: None GI Surgical History: Reports: Cholecystectomy, Colonoscopy, EGD Other GI Surgeries/Procedures: c-diff,fecal transplant Other Female Surgeries/Procedures: DIAGNOSTIC LAPAROSCOPY Endocrine Surgical History: Reports: Thyroid Biopsy Other Musculoskeletal Surgeries/Procedures:: fibromyalgia/ states , has rheumatoid arthritis, degenerative disc dse. FX LEFT FOOT. STATES WORE A BOOT FOR 6 MOS. Social & Family History - Family History Family Medical History: No Pertinent Family History GI: Reports: None Musculoskeletal: Reports: RA Psychiatric: Reports: Depression Oncologic: Reports: Leukemia - Tobacco Use Tobacco Use Status *Q: Current Every Day Tobacco User Years of Tobacco use: 30 Packs/Tins Daily: 0.5 - Caffeine Use Caffeine Use: Reports: Soda - Alcohol Use Days Per Week of Alcohol Use: 2 Number of Drinks Per Day: 2 Total Drinks Per Week: 4 - Recreational Drug Use Recreational Drug Use: Yes Recreational Drug Type: Reports: Marijuana/Hashish Other Recreational Drug Type: Has hx meth abuse, hasn't used in past 3 yrs. Recreational Drug Use Frequency: Weekly - Living Situation & Occupation Living situation: Reports: Single Occupation: Employed ED ROS GENERAL - Review of Systems Review Of Systems: See Below Constitutional: Reports: No Symptoms HEENT: Reports: No Symptoms Respiratory: Reports: No Symptoms Cardiovascular: Reports: Chest Pain Endocrine: Reports: No Symptoms GI/Abdominal: Reports: No Symptoms : Reports: No Symptoms Musculoskeletal: Reports: No Symptoms Skin: Reports: No Symptoms Neurological: Reports: No Symptoms ED EXAM, GENERAL - Physical Exam Exam: See Below Exam Limited By: No Limitations General Appearance: Alert, No Apparent Distress Ears: Normal External Exam, Normal Canal Nose: Normal Inspection, Normal Mucosa, No Blood Throat/Mouth: Normal Inspection, Normal Lips, Normal Teeth Head: Atraumatic, Normocephalic Neck: Normal Inspection, Supple, Non-Tender, Full Range of Motion Respiratory/Chest: No Respiratory Distress, Lungs Clear, Normal Breath Sounds Cardiovascular: Normal Peripheral Pulses, No Edema, No Gallop, Tachycardia GI/Abdominal: Normal Bowel Sounds, Soft, Non-Tender, No Organomegaly Back Exam: Normal Inspection, Full Range of Motion #1 Interpretation EKG Date: 02/27/21 Time: 21:11 Rhythm: NSR Rate (Beats/Min): 132 [place]: Normal P-Wave: Present QRS: Normal ST-T: Normal QT: Normal EKG Interpretation Comments: Sinus Tach St Dep, and T inv Course - Vital Signs Text/Narrative:: Lab/EKG/CXR result was reviewed and discussed with patient Magnesium SO4 2 gm IV x1 Klor con 20 meq, 2 PO x1 Labetalol 10 mg IV x1 Last Recorded V/S: Last Vital Signs Temp 37.1 C 02/27/21 21:07 Pulse 132 H 02/27/21 21:07 Resp 32 H 02/27/21 21:07 BP 186/140 H 02/27/21 21:07 Pulse Ox 98 02/27/21 21:07 - Orders/Labs/Meds Orders: Active Orders 24 hr Category Date Time Status EKG Documentation Completion [RC] ASDIRECTED Care 02/27/21 21:28 Active Chest 1V Frontal [CR] Stat Exams 02/27/21 21:28 Taken Magnesium Sulfate [Magnesium Sulfate 50%] 2 gm Med 02/27/21 21:55 Active Dextrose 5% in Water 100 ml IV ONETIME Sodium Chloride 0.9% [Saline Flush] Med 02/27/21 21:55 Active 10 ml FLUSH ASDIRECTED PRN Saline Lock Insert [OM.PC] Routine Oth 02/27/21 21:55 Ordered EKG 12 Lead [EK] Routine Ther 02/27/21 21:28 Ordered Medication Orders Magnesium Sulfate 2 gm/ (Dextrose/Water) 104 mls @ 100 mls/hr IV ONETIME ONE Stop: 02/27/21 22:57 Last Admin: 02/27/21 22:32 Dose: Not Given Documented by: SHARA Sodium Chloride (Sodium Chloride 0.9% 10 Ml Syringe) 10 ml FLUSH ASDIRECTED PRN PRN Reason: Keep Vein Open Labs: Laboratory Tests 06/02/27/21 02/27/21 Range/Units 21:27 21:27 21:27 WBC 9.2 (3.0-10.3) x10-3/uL RBC 4.11 (3.60-5.20) x10(6)uL Hgb 13.8 (11.4-15.5) g/dL Hct 39.6 (34.2-48.2) % MCV 96.3 (76.7-100.5) fL MCH 33.5 (23.9-33.9) pg MCHC 34.8 (31.9-34.8) g/dL RDW 13.1 (12.3-16.5) % Plt Count 249 (151-488) x10(3)uL MPV 9.0 (7.1-12.4) fL Neut % (Auto) 48.6 (30.8-76.2) % Lymph % (Auto) 39.1 (18.4-52.1) % [place] % (Auto) 8.3 (4.4-15.7) % Eos % (Auto) 3.2 (0.6-8.1) % Baso % (Auto) 0.8 (0.2-1.5) % Neut # (Auto) 4.5 (1.5-6.3) x10-3/uL Lymph # (Auto) 3.6 (1.0-4.4) x10-3/uL [place] # (Auto) 0.8 (0.3-1.0) x10-3/uL Eos # (Auto) 0.3 (0.0-0.8) x10-3/uL Baso # (Auto) 0.1 (0.0-0.1) x10-3/uL Sodium 141 (135-145) mmol/L Potassium 2.8 L* (3.5-5.3) mmol/L Chloride 105 (100-110) mmol/L Carbon Dioxide 22 (21-32) mmol/L BUN 10 (7-18) mg/dL Creatinine 0.8 (0.55-1.02) mg/dL Est Cr Clr Drug Dosing 77.38 mL/min Estimated GFR (MDRD) > 60 (>60) BUN/Creatinine Ratio 12.5 (9-20) Glucose 204 H D (80-116) mg/dL Calcium 8.4 L (8.6-10.2) mg/dL Magnesium 1.6 L (1.8-2.5) mg/dL Total Bilirubin 0.5 (0.1-1.3) mg/dL AST 14 D (5-25) IU/L ALT 22 D (12-36) U/L Alkaline Phosphatase 98 (56-112) IU/L Troponin I < 4.0 L (4.0-60.3) pg/mL Total Protein 6.9 (6.0-8.0) g/dL Albumin 3.6 (3.5-5.2) g/dL Globulin 3.3 g/dL Albumin/Globulin Ratio 1.1 Urine Color (YELLOW) Urine Appearance (CLEAR) Urine pH (5.0-6.5) Ur Specific [place] (1.010-1.025) Urine Protein (NEGATIVE) mg/dL Urine Glucose (UA) (NORMAL) mg/dL Urine Ketones (NEGATIVE) mg/dL Urine Occult Blood (NEGATIVE) Urine Nitrite (NEGATIVE) Urine Bilirubin (NEGATIVE) Urine Urobilinogen (NEGATIVE) mg/dL Ur Leukocyte Esterase (NEGATIVE) Urine RBC (0-5) Urine WBC (0-5) Ur Squamous Epith Cells (NS,R,O) Urine Bacteria (NS) 02/27/21 Range/Units 21:57 WBC (3.0-10.3) x10-3/uL RBC (3.60-5.20) x10(6)uL Hgb (11.4-15.5) g/dL Hct (34.2-48.2) % MCV (76.7-100.5) fL MCH (23.9-33.9) pg MCHC (31.9-34.8) g/dL RDW (12.3-16.5) % Plt Count (151-488) x10(3)uL MPV (7.1-12.4) fL Neut % (Auto) (30.8-76.2) % Lymph % (Auto) (18.4-52.1) % [place] % (Auto) (4.4-15.7) % Eos % (Auto) (0.6-8.1) % Baso % (Auto) (0.2-1.5) % Neut # (Auto) (1.5-6.3) x10-3/uL Lymph # (Auto) (1.0-4.4) x10-3/uL [place] # (Auto) (0.3-1.0) x10-3/uL Eos # (Auto) (0.0-0.8) x10-3/uL Baso # (Auto) (0.0-0.1) x10-3/uL Sodium (135-145) mmol/L Potassium (3.5-5.3) mmol/L Chloride (100-110) mmol/L Carbon Dioxide (21-32) mmol/L BUN (7-18) mg/dL Creatinine (0.55-1.02) mg/dL Est Cr Clr Drug Dosing mL/min Estimated GFR (MDRD) (>60) BUN/Creatinine Ratio (9-20) Glucose (80-116) mg/dL Calcium (8.6-10.2) mg/dL Magnesium (1.8-2.5) mg/dL Total Bilirubin (0.1-1.3) mg/dL AST (5-25) IU/L ALT (12-36) U/L Alkaline Phosphatase (56-112) IU/L Troponin I (4.0-60.3) pg/mL Total Protein (6.0-8.0) g/dL Albumin (3.5-5.2) g/dL Globulin g/dL Albumin/Globulin Ratio Urine Color Yellow (YELLOW) Urine Appearance Clear (CLEAR) Urine pH 7.0 H (5.0-6.5) Ur Specific [place] 1.010 (1.010-1.025) Urine Protein Negative (NEGATIVE) mg/dL Urine Glucose (UA) Normal (NORMAL) mg/dL Urine Ketones Negative (NEGATIVE) mg/dL Urine Occult Blood Moderate H (NEGATIVE) Urine Nitrite Negative (NEGATIVE) Urine Bilirubin Negative (NEGATIVE) Urine Urobilinogen Normal (NEGATIVE) mg/dL Ur Leukocyte Esterase Negative (NEGATIVE) Urine RBC 5-10 H (0-5) Urine WBC 0-5 (0-5) Ur Squamous Epith Cells Few H (NS,R,O) Urine Bacteria Few H (NS) Meds: Medications Generic Name Dose Route Start Last Admin Trade Name Freq PRN Reason Stop Dose Admin Magnesium Sulfate 2 gm/ 104 mls @ 100 mls/hr 06/18/21 21:55 02/27/21 22:32 Dextrose/Water IV 02/27/21 22:57 Not Given ONETIME ONE Sodium Chloride 10 ml 02/27/21 21:55 Sodium Chloride 0.9% 10 Ml Syringe FLUSH ASDIRECTED PRN Keep Vein Open Discontinued Medications Generic Name Dose Route Start Last Admin Trade Name Odette PRN Reason Stop Dose Admin Magnesium Sulfate Confirm 02/27/21 22:02 02/27/21 22:32 Magnesium Sulfate In Water 2 Gm/50 Ml Administered 02/27/21 22:03 50 mls/hr Dose Administration 2 gm in 50 mls @ as directed .ROUTE .STK-MED ONE Ketorolac Tromethamine 30 mg 02/27/21 22:44 Ketorolac 30 Mg/Ml Sdv IVPUSH 02/27/21 22:45 NOW STA Labetalol HCl 20 mg 02/27/21 22:00 02/27/21 22:36 Labetalol 20 Mg/4 Ml Syringe IVPUSH 02/27/21 22:01 Not Given NOW STA Protocol Labetalol HCl 10 mg 02/27/21 22:18 02/27/21 22:22 Labetalol 20 Mg/4 Ml Syringe IVPUSH 02/27/21 22:19 10 mg NOW STA Administration Protocol Potassium Chloride 40 meq 02/27/21 21:55 02/27/21 22:30 Potassium Chloride 20 Meq Tab.Er PO 02/27/21 21:56 20 meq ONETIME ONE Administration Potassium Chloride Confirm 02/27/21 22:08 02/27/21 22:10 Potassium Chloride 20 Meq Tab.Er Administered 02/27/21 22:09 20 meq Dose Administration 20 meq .ROUTE .STK-MED ONE Departure - Departure Time of Disposition: 23:30 Disposition: Home, Self-Care 01 Condition: Good Clinical Impression: Migraine, Hypokalemia, Hypomagnesemia, Chest pain, COPD (chronic obstructive pulmonary disease) Hypertension Qualifiers: Hypertension type: essential hypertension Qualified Code(s): I10 - Essential (primary) hypertension - Discharge Information Instructions: Hypomagnesemia, Nonspecific Chest Pain, Adult, Migraine Headache, [id number] Forms: ED Department Discharge Additional Instructions: Please read discharge instructions on Migraine,low magnesium,low potassium, chest pain Klor con 20 meq, 2 tablets 3 times daily for 1 day Follow up with your doctor so yo be referred to see a Physicist Cryogenics who will check you for a possible kidney disease that can cause low potassium and magnesium Ta imitrex as directed Ibuprofen 800 mg and Tylenol 1000 mg every 8 hours as needed for headache Sepsis Event Note (ED) - Evaluation Sepsis Screening Result: No Definite Risk - Focused Exam Vital Signs: Vital Signs Temp Pulse Resp BP Pulse Ox 02/27/21 21:07 37.1 C 132 H 32 H 186/140 H 98 - My Orders Last 24 Hours: My Active Orders 02/27/21 21:28 EKG Documentation Completion [RC] ASDIRECTED Chest 1V Frontal [CR] Stat EKG 12 Lead [EK] Routine 02/27/21 21:55 Magnesium Sulfate [Magnesium Sulfate 50%] 2 gm Dextrose 5% in Water 100 ml IV ONETIME Sodium Chloride 0.9% [Saline Flush] 10 ml FLUSH ASDIRECTED PRN Saline Lock Insert [OM.PC] Routine - Assessment/Plan Last 24 Hours: My Active Orders 02/27/21 21:28 EKG Documentation Completion [RC] ASDIRECTED Chest 1V Frontal [CR] Stat EKG 12 Lead [EK] Routine 02/27/21 21:55 Magnesium Sulfate [Magnesium Sulfate 50%] 2 gm Dextrose 5% in Water 100 ml IV ONETIME Sodium Chloride 0.9% [Saline Flush] 10 ml FLUSH ASDIRECTED PRN Saline Lock Insert [OM.PC] Routine
[2021-02-27] MEDS ORDERED: Potassium Chloride 20 MEQ Tab.ER PO ONE (21:55)
[2021-02-27] MEDS ORDERED: Sodium Chloride 0.9% 10 ML Syringe FLUSH PRN (21:55)
[2021-02-27] MEDS ORDERED: Labetalol 20 MG/4 ML Syringe IVPUSH STA ×2 (22:00→22:18)
[2021-02-27] MEDS ORDERED: Magnesium Sulfate/Water 2 GM/50 ML BAG ONE (22:02)
[2021-02-27] MEDS ORDERED: Potassium Chloride 20 MEQ Tab.ER ONE (22:08)
[2021-02-27] MEDS ORDERED: Ketorolac 30 MG/ML SDV IVPUSH STA (22:44)
[2021-02-27] MEDS ORDERED: Potassium Chloride 20 MEQ Tab.ER PO STA (23:17)
[2021-02-28 00:47] VITALS: BP 138/80; PULSE 83
--- NOTE | 2021-03-02 10:58 | CR ---
INDICATION: Chest pain. CHEST ONE VIEW: AP upright portable view of the chest was obtained 02/27/21 and compared with 05/01/19 and 07/01/18. Neural stimulator leads again noted in the mid thoracic spine. The heart appeared normal in size and shape. Mediastinum was unremarkable. Overlying EKG leads are noted. Pulmonary markings are similar to the previous studies without a definite active infiltrate or effusion. IMPRESSION: Stable chest - no acute process. MTDD
== END 2021-02-28 00:13 | disposition home or self-care (01) ==
LOC: FB.ED 21:01
DX: J44.9 Chronic obstructive pulmonary disease, unspecified (principal); G43.909 Migraine, unspecified, not intractable, without status migrainosus; E87.6 Hypokalemia; E83.42 Hypomagnesemia; I10 Essential (primary) hypertension; R00.0 Tachycardia, unspecified; Z72.0 Tobacco use; Z88.5 Allergy status to narcotic agent; Z79.899 Other long term (current) drug therapy
CPT/HCPCS: 36415; 71045; 80053; 81001; 83735; 84484; 85025; 93005; 93010; 96365; 96366; 96375; 99284; 99285-25; A9270-GY; J1885; J3475; J3490

== ENCOUNTER 2021-03-01 14:00 | Emergency (ER) | payer MEDICAID ==
[2021-03-01] MEDS ORDERED: Sodium Chloride 0.9% 1,000 ML IV ONE (14:29)
[2021-03-01] MEDS ORDERED: Ketorolac 30 MG/ML SDV IVPUSH ONE (14:29)
[2021-03-01] MEDS ORDERED: diphenhydrAMINE 50 MG/ML SDV IVPUSH ONE (14:29)
[2021-03-01] MEDS ORDERED: Sodium Chloride 0.9% 10 ML Syringe FLUSH PRN (14:29)
[2021-03-01] MEDS ORDERED: Prochlorperazine 10 MG/2 ML SDV IVPUSH ONE (14:29)
--- NOTE | 2021-03-01 14:29 | EDM.PDOC ---
ED HPI GENERAL MEDICAL PROBLEM - General Stated Complaint: MIGRAINE Time Seen by Provider: 03/01/21 14:12 Source of Information: Reports: Patient History Limitations: Reports: No Limitations - History of Present Illness INITIAL COMMENTS - FREE TEXT/NARRATIVE: 50-year-old female who reports onset of headache Tuesday morning when she awoke. She reports that her headache continued through the day and did not relieve with her usual medications that she would use for her migraines and then that evening she came to the emergency department to be seen. At that point her blood pressure was elevated to 200/113 and she had a fairly since her workup which included blood tests which did show slightly low potassium and a slightly low magnesium. She was given medication for her headache (Toradol) IV fluids as well as IV magnesium and oral potassium. She reports that her headache improved and she was discharged but it has come back yesterday afternoon and she has had the headache all through the night. She has tried Imitrex and Aleve without any relief. She reports nausea but no vomiting. She has been taking oral potassium at home and reports she took 3 doses yesterday. She reports the headache is all over her head and she rates the pain as a 9/10. The pain is sharp pain and it is throbbing and pounding. It is all over her head. It does not radiate. There is nausea but there is been no vomiting. She reports the headache is like her normal and usual migraine it just seems to be worse than usual. She does have photophobia and phonophobia. She has no localized area of weakness or numbness. She has had no fevers or chills. She has had no cough or difficulty breathing. There has been no dysuria or hematuria. No vision problems. There are no other associated signs or symptoms. There are no other modifying factors. Onset: Other (Tuesday morning and has been waxing and waning since then) Duration: Getting Worse (Overnight), Waxing/Waning Location: Reports: Head Quality: Reports: Sharp, Throbbing (And pounding) Severity: Moderate (to here.) Improves with: Reports: None Worsens with: Reports: Other (Light makes it worse. 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), Other Medication(s) (Imitrex) headache Pain Score (Numeric/FACES): 8 - Related Data Allergies Allergy/AdvReac Type Severity Reaction Status Date / Time morphine Allergy Nausea and Verified 03/01/21 14:44 Vomiting Home Meds: Home Meds Albuterol [IMW: Albuterol HFA] 2 puff IH Q4H PRN 06/13/17 [History] LORazepam [Ativan] 0.5 mg PO BID PRN 06/13/17 [History] Tocilizumab [Actemra] 0.9 ml SQ ASDIRECTED 06/13/17 [History] Diclofenac Sodium [Voltaren] 75 mg PO BID PRN 01/30/19 [History] SUMAtriptan succinate [Imitrex] 100 mg PO Q2H PRN 01/30/19 [History] ondansetron HCL [Zofran] 4 mg PO TID PRN 01/30/19 [History] Cyclobenzaprine [Flexeril] 10 mg PO DAILY PRN 02/27/21 [History] FLUoxetine HCl [Prozac] 20 mg PO DAILY 02/27/21 [History] Potassium Chloride [Klor-Con M20] 40 meq PO TID #6 tab.er.prt 02/27/21 [Rx] amLODIPine [Norvasc] 5 mg PO DAILY #30 tab 02/27/21 [Rx] Past Medical History HEENT History: Reports: Impaired Vision Cardiovascular History: Reports: Hypertension Other Cardiovascular History: HTN when sick, is not on any medication. 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 IV PARA IV Musculoskeletal History: Reports: Arthritis, Back Pain, Chronic, Fracture, Fibromyalgia, Osteoarthritis, RA Other Musculoskeletal History: fx 3 metatarsals L ft, history of RA Neurological History: Reports: Concussion, Migraines Other Neuro History: states has migranes Psychiatric History: Reports: Addiction, Anxiety, Depression Other Psychiatric History: hx meth abuse, clean for past 3 yrs Other Endocrine/Metabolic History: hyponatremia - Infectious Disease History Infectious Disease History: Reports: C-Difficile, Chicken Pox - Past Surgical History HEENT Surgical History: Reports: Oral Surgery Other HEENT Surgeries/Procedures: WISDOM TEETH EXTRACTION GI Surgical History: Reports: Cholecystectomy, Colonoscopy, EGD Other GI Surgeries/Procedures: c-diff,fecal transplant Other Female Surgeries/Procedures: DIAGNOSTIC LAPAROSCOPY Endocrine Surgical History: Reports: Thyroid Biopsy Social & Family History - Family History Musculoskeletal: Reports: RA Neurological: Reports: Migraines Psychiatric: Reports: Depression Oncologic: Reports: Leukemia - Tobacco Use Tobacco Use Status *Q: Current Every Day Tobacco User - Caffeine Use Caffeine Use: Reports: Soda - Alcohol Use Alcohol Use History: Yes Alcohol Use Frequency: Socially (Occasional alcohol use) - Living Situation & Occupation Living situation: Reports: Single 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 Denies: Chest Pain, Lightheadedness Endocrine: Denies: Polydypsia, Polyuria GI/Abdominal: Reports: Nausea. Denies: Vomiting : Denies: Dysuria, Hematuria Musculoskeletal: Denies: Neck Pain, Back Pain Skin: Denies: Diaphoresis, Rash Neurological: Reports: Headache. Denies: Weakness Psychiatric: Denies: Anxiety, Confusion Hematologic/Lymphatic: Denies: Easy Bleeding, Easy Bruising - Physical Exam Exam: See Below Exam Limited By: No Limitations General Appearance: Alert, WD/WN, Moderate Distress (Appears in some pain.) Eye Exam: Bilateral Eye: EOMI, Normal Inspection, PERRL, Other (Photophobia) Ears: Normal External Exam, Hearing Grossly Normal Nose: Normal Inspection, Normal Mucosa, No Blood Throat/Mouth: Normal Inspection, Normal Oropharynx, Normal Voice, No Airway Compromise Head Exam: Atraumatic, Normocephalic Neck: Normal Inspection, Supple, Non-Tender, Full Range of Motion Respiratory/Chest: No Respiratory Distress, Lungs Clear, Normal Breath Sounds, No Accessory Muscle Use, Chest Non-Tender Cardiovascular: Normal Peripheral Pulses, Regular Rate, Rhythm, No Murmur GI/Abdominal: Normal Bowel Sounds, Soft, Non-Tender, No Mass Neuro Exam (Abbreviated): Alert, Oriented, CN II-XII Intact, Normal Cognition, No Motor/Sensory Deficits Back Exam: Normal Inspection, Full Range of Motion Extremities: Normal Inspection, Normal Range of Motion, Non-Tender, No Pedal Edema, Normal Capillary Refill Psychiatric: Normal Affect Skin Exam: Warm, Dry, Intact, Normal Color, No Rash Course - Vital Signs Last Recorded V/S: Last Vital Signs Temp 36.4 C 03/01/21 14:15 Pulse 82 03/01/21 14:15 Resp 16 03/01/21 14:15 BP 169/79 H 03/01/21 14:15 Pulse Ox 98 03/01/21 14:15 - Orders/Labs/Meds Orders: Active Orders 24 hr Category Date Time Status Sodium Chloride 0.9% [Saline Flush] Med 03/01/21 14:29 Active 10 ml FLUSH ASDIRECTED PRN Peripheral IV Insertion Adult [OM.PC] Routine Oth 03/01/21 14:29 Ordered Medication Orders Sodium Chloride (Sodium Chloride 0.9% 10 Ml Syringe) 10 ml FLUSH ASDIRECTED PRN PRN Reason: Keep Vein Open Last Admin: 03/01/21 15:00 Dose: 10 ml Documented by: AURELIA Labs: Laboratory Tests 03/01/21 Range/Units 14:40 Sodium 142 (135-145) mmol/L Potassium 4.0 D (3.5-5.3) mmol/L Chloride 104 (100-110) mmol/L Carbon Dioxide 27 (21-32) mmol/L BUN 9 (7-18) mg/dL Creatinine 0.8 (0.55-1.02) mg/dL Est Cr Clr Drug Dosing 77.38 mL/min Estimated GFR (MDRD) > 60 (>60) BUN/Creatinine Ratio 11.3 (9-20) Glucose 92 D (80-116) mg/dL Calcium 8.7 (8.6-10.2) mg/dL Magnesium 2.0 (1.8-2.5) mg/dL Meds: Medications Generic Name Dose Route Start Last Admin Trade Name Freq PRN Reason Stop Dose Admin Sodium Chloride 10 ml 03/01/21 14:29 03/01/21 15:00 Sodium Chloride 0.9% 10 Ml Syringe FLUSH 10 ml ASDIRECTED PRN Administration Keep Vein Open Discontinued Medications Generic Name Dose Route Start Last Admin Trade Name Freq PRN Reason Stop Dose Admin Diphenhydramine HCl 50 mg 03/01/21 14:29 03/01/21 15:11 Diphenhydramine 50 Mg/Ml Sdv IVPUSH 03/01/21 14:30 50 mg ONETIME ONE Administration Sodium Chloride 1,000 mls @ 999 mls/hr 03/01/21 14:29 03/01/21 15:05 Normal Saline IV 03/01/21 15:29 999 mls/hr .BOLUS ONE Administration Ketorolac Tromethamine 30 mg 03/01/21 14:29 03/01/21 15:11 Ketorolac 30 Mg/Ml Sdv IVPUSH 03/01/21 14:30 30 mg ONETIME ONE Administration Prochlorperazine Edisylate 10 mg 03/01/21 14:29 03/01/21 15:11 Prochlorperazine 10 Mg/2 Ml Sdv IVPUSH 03/01/21 14:30 10 mg ONETIME ONE Administration - Re-Assessments/Exams Free Text/Narrative Re-Assessment/Exam: 03/01/21 15:40: Patient reports that her headache is down to a 6-7/10 and "it is improving". Her magnesium and potassium levels were normal today. The plan will be to give the patient the remaining normal saline fluid bolus and discharge her home after this. I discussed this with the patient and she is in agreement with this plan for discharge. Precautions and reasons for return to the emergency department were discussed with the patient while she was in the [facility] and were detailed in the patient's discharge instructions. 03/01/21 16:05: Headache is now down to 4/10. She feels much improved. She remains neurologically stable. She is ready for discharge. Departure - Departure Time of Disposition: 16:05 Disposition: Home, Self-Care 01 Condition: Good (Proved) Clinical Impression: Migraine headache Qualifiers: Migraine type: unspecified Status migrainosus presence: with status migrainosus Intractability: not intractable Qualified Code(s): G43.901 - Migraine, unspecified, not intractable, with status migrainosus - Discharge Information Instructions: Migraine Headache, [id number] Referrals: Boston Pedroza MD [Primary Care Provider] - Additional Instructions: Your magnesium and potassium levels were normal today. You should rest in a dark, quiet room. You should increase your fluid intake. Rest. No work until 03/02/2021. Back to the emergency department for her, unrelenting vomiting, severe weakness, localized area of numbness or weakness or any other concerning signs or symptoms. Sepsis Event Note (ED) - Focused Exam Vital Signs: Vital Signs Temp Pulse Resp BP Pulse Ox 03/01/21 14:15 36.4 C 82 16 169/79 H 98 - My Orders Last 24 Hours: My Active Orders 03/01/21 14:29 Sodium Chloride 0.9% [Saline Flush] 10 ml FLUSH ASDIRECTED PRN Peripheral IV Insertion Adult [OM.PC] Routine - Assessment/Plan Last 24 Hours: My Active Orders 03/01/21 14:29 Sodium Chloride 0.9% [Saline Flush] 10 ml FLUSH ASDIRECTED PRN Peripheral IV Insertion Adult [OM.PC] Routine
[2021-03-01 14:31] VITALS: BP 169/79; PULSE 82
== END 2021-03-01 16:14 | disposition home or self-care (01) ==
LOC: FB.ED 14:00
DX: G43.901 Migraine, unspecified, not intractable, with status migrainosus (principal); I10 Essential (primary) hypertension; J44.9 Chronic obstructive pulmonary disease, unspecified; Z72.0 Tobacco use; Z88.6 Allergy status to analgesic agent
CPT/HCPCS: 36415; 80048; 83735; 96374; 96375; 99283; 99284; J0780; J1200; J1885; J7030

== ENCOUNTER 2022-11-16 17:23 | Emergency (ER) | payer BC, MEDICAID ==
[2022-11-16] MEDS ORDERED: Ondansetron 4 MG/2 ML SDV IVPUSH ONE (18:11)
[2022-11-16] MEDS ORDERED: Ketorolac 30 MG/ML SDV IVPUSH ONE (18:11)
[2022-11-16] MEDS ORDERED: Sodium Chloride 0.9% 1,000 ML IV ONE ×2 (18:11→18:14)
[2022-11-16 18:39] LABS: ESTIMATED GFR 90 mL/min (>60)
[2022-11-16] MEDS ORDERED: Iopamidol 755 Mg/ML 100 ML Bottle IV ONE (19:12)
[2022-11-16] MEDS ORDERED: Levofloxacin/Dextrose 5%-Water 750 MG in Premix Bag 1 BAG IV ONE (19:57)
[2022-11-16] MEDS: Metoclopramide 10 MG/2 ML SDV IVPUSH ONE ×2 (20:20→21:37)
[2022-11-16] MEDS ORDERED: Metoclopramide 10 MG/2 ML SDV ONE (21:36)
[2022-11-16 22:04] VITALS: PULSE 95
[2022-11-16 22:26] VITALS: BP 160/85
== END 2022-11-16 22:35 | disposition home or self-care (01) ==
LOC: FB.ED 17:23
DX: N30.00 Acute cystitis without hematuria (principal); R19.7 Diarrhea, unspecified; R11.2 Nausea with vomiting, unspecified; D72.829 Elevated white blood cell count, unspecified; E87.6 Hypokalemia; R82.4 Acetonuria; D58.2 Other hemoglobinopathies; I10 Essential (primary) hypertension; J44.9 Chronic obstructive pulmonary disease, unspecified; Z88.5 Allergy status to narcotic agent; Z72.0 Tobacco use; Z20.822 Contact with and (suspected) exposure to COVID-19
CPT/HCPCS: 36415; 74177; 80053; 81001; 83690; 83735; 85025; 87086; 96361; 96374; 96375; 99285-25; J1885; J1956; J2405; J2765; J7030; Q9967; U0002

== ENCOUNTER 2023-04-14 11:33 | Emergency (ER) | payer BC, MEDICAID ==
[2023-04-14] MEDS ORDERED: hydrOXYzine HCl 50 MG/ML SDV IM ONE (12:48)
[2023-04-14] MEDS ORDERED: Ketorolac 30 MG/ML SDV IM ONE (12:49)
[2023-04-14 14:08] VITALS: BP 170/98; PULSE 65
== END 2023-04-14 14:08 | disposition home or self-care (01) ==
LOC: FB.ED 11:33
DX: G43.909 Migraine, unspecified, not intractable, without status migrainosus (principal); I10 Essential (primary) hypertension; J44.9 Chronic obstructive pulmonary disease, unspecified; F17.210 Nicotine dependence, cigarettes, uncomplicated; Z88.5 Allergy status to narcotic agent
CPT/HCPCS: 36415; 84484; 93005; 96372; 99283; J1885; J3410

== ENCOUNTER 2023-05-30 06:22 | Day surgery (SDC) | payer BC, MEDICAID ==
[2023-05-30] MEDS ORDERED: Propofol 200 MG/20 ML SDV IV ONE (06:23)
[2023-05-30 07:08] VITALS: BP 120/86; PULSE 78
[2023-05-30] MEDS ORDERED: Simethicone Drops 40 MG/0.6 ML 30 ML Bottle PO ONE (07:41)
== END 2023-05-30 08:55 | disposition home or self-care (01) ==
LOC: FB.SDS 06:22
PROVIDERS: ATTEND Surgery
DX: K64.1 Second degree hemorrhoids (principal); K64.4 Residual hemorrhoidal skin tags; Z80.0 Family history of malignant neoplasm of digestive organs; Z79.899 Other long term (current) drug therapy; Z88.5 Allergy status to narcotic agent; F41.9 Anxiety disorder, unspecified; J45.909 Unspecified asthma, uncomplicated; I10 Essential (primary) hypertension; J44.9 Chronic obstructive pulmonary disease, unspecified; F32.A Depression, unspecified; M79.7 Fibromyalgia; F41.1 Generalized anxiety disorder; K21.9 Gastro-esophageal reflux disease without esophagitis; Z90.49 Acquired absence of other specified parts of digestive tract; F17.210 Nicotine dependence, cigarettes, uncomplicated
CPT/HCPCS: 00812; 45378; A9270; J2704; J7120

== ENCOUNTER 2024-02-19 00:59 | Emergency (ER) | payer BC, MEDICAID ==
[2024-02-19 01:25] VITALS: BP 153/86; PULSE 116
[2024-02-19] MEDS ORDERED: Sodium Chloride 0.9% 10 ML SDV IV STA (01:25)
[2024-02-19] MEDS: Sodium Chloride 0.9% 1,000 ML IV ONE (01:39)
[2024-02-19 01:47] LABS: BLOOD UREA NITROGEN,BUN 11 mg/dL (7-18); BUN/CREATININE RATIO 13.8 (9-20); CALCIUM 8.4 mg/dL (8.6-10.2); CARBON DIOXIDE,CO2 22 mmol/L (21-32); CHLORIDE,CL 103 mmol/L (100-110); CREATININE 0.8 mg/dL (0.55-1.02); EST CRCL DRUG DOSING (CG) 77.88 mL/min; ESTIMATED GFR 89 mL/min (>60); GLUCOSE RANDOM 217 mg/dL (80-116); POTASSIUM,K 3.1 mmol/L (3.5-5.3); SODIUM,NA 139 mmol/L (135-145)
[2024-02-19 01:51] LABS: BASOPHILS PERCENT AUTO 0.5 % (0.2-1.5); EOSINOPHILS ABSOLUTE AUTO 0.3 x10-3/uL (0.0-0.8); EOSINOPHILS PERCENT AUTO 3.3 % (0.6-8.1); HEMATOCRIT 41.8 % (34.2-48.2); HEMOGLOBIN 14.1 g/dL (11.4-15.5); LYMPHOCYTES ABSOLUTE AUTO 3.2 x10-3/uL (1.0-4.4); MEAN CORPUSCULAR HEMOGLOBIN 32.4 pg (23.9-33.9); MEAN CORPUSCULAR HGB CONC 33.6 g/dL (31.9-34.8); MEAN CORPUSCULAR VOLUME 96.4 fL (76.7-100.5); MEAN PLATELET VOLUME 9.2 fL (7.1-12.4); MONOCYTES ABSOLUTE AUTO 0.5 x10-3/uL (0.3-1.0); MONOCYTES PERCENT AUTO 6.9 % (4.4-15.7); NEUTROPHILS ABSOLUTE AUTO 3.8 x10-3/uL (1.5-6.3); NEUTROPHILS PERCENT AUTO 48.4 % (30.8-76.2); PLATELET COUNT,PLT 267 x10(3)uL (151-488); RED BLOOD CELL COUNT 4.34 x10(6)uL (3.60-5.20); RED CELL DISTRIBUTION WIDTH 12.7 % (12.3-16.5); WHITE BLOOD CELL COUNT,WBC 7.8 x10-3/uL (3.0-10.3)
[2024-02-19 01:53] LABS: A/G RATIO 1.1; ALANINE AMINOTRANSFERASE,ALT 28 U/L (12-36); ALBUMIN 3.8 g/dL (3.5-5.2); ALKALINE PHOSPHATASE 130 IU/L (56-112); ASPARTATE AMNIOTRANSFERASE,AST 21 IU/L (5-25); BILIRUBIN TOTAL 0.5 mg/dL (0.1-1.3); PROTEIN TOTAL,TP 7.2 g/dL (6.0-8.0)
[2024-02-19] MEDS: LORazepam 2 MG/ML SDV IVPUSH ONE (02:18)
[2024-02-19] MEDS: Potassium Chloride 20 MEQ Tab.ER PO ONE (02:20)
== END 2024-02-19 02:56 | disposition home or self-care (01) ==
LOC: FB.ED 00:59
DX: R07.89 Other chest pain (principal); E87.6 Hypokalemia; R73.9 Hyperglycemia, unspecified; J44.9 Chronic obstructive pulmonary disease, unspecified; K21.9 Gastro-esophageal reflux disease without esophagitis; Z88.5 Allergy status to narcotic agent; Z79.51 Long term (current) use of inhaled steroids; Z79.899 Other long term (current) drug therapy
CPT/HCPCS: 80053; 80307; 84484; 85025; 93005; 93010; 96361; 96374; 99283; 99285; A9270; J2060; J7030

== ENCOUNTER 2024-05-07 20:06 | Emergency (ER) | payer BC, MEDICAID ==
[2024-05-07] MEDS ORDERED: Amoxicillin/Clavulanate K 875-125 MG Tab PO ONE (20:07)
[2024-05-07] MEDS ORDERED: Acetaminophen/HYDROcodone 325-5 MG Tab PO ONE (20:07)
[2024-05-07] MEDS: Diphtheria,Pertussis(Acell),Tetanus Vaccine 0.5 ML Syringe IM ONE (20:54)
[2024-05-07 22:00] VITALS: BP 144/101; PULSE 96
== END 2024-05-07 21:22 | disposition home or self-care (01) ==
LOC: FB.ED 20:06
DX: S91.351A Open bite, right foot, initial encounter (principal); S91.352A Open bite, left foot, initial encounter; I10 Essential (primary) hypertension; J45.909 Unspecified asthma, uncomplicated; Z90.49 Acquired absence of other specified parts of digestive tract; Z79.899 Other long term (current) drug therapy; Z79.891 Long term (current) use of opiate analgesic; Z23 Encounter for immunization; Z88.5 Allergy status to narcotic agent; W55.01XA Bitten by cat, initial encounter
CPT/HCPCS: 90471; 90715; 99283; A9270